=== PATIENT | male | born 1980 | race American Indian/Alaskan Native ===

== ENCOUNTER 2016-05-23 20:38 | Emergency (ER) | payer SELFPAY ==
[2016-05-23 21:43] VITALS: BP 143/96
[2016-05-24] MEDS ORDERED: MOTRIN PO ONE (01:32)
[2016-05-24] MEDS ORDERED: SUDAFED PO ONE (01:32)
[2016-05-24] MEDS ORDERED: CLEOCIN PO ONE (01:33)
--- NOTE | 2016-05-24 02:02 | Emergency Department Report ---
ED ENT HPI - General Chief complaint: Earache Stated complaint: BILATERAL EAR PAIN Time Seen by Provider: 05/24/16 01:16 Source: patient Mode of arrival: Ambulatory Limitations: No Limitations - History of Present Illness Initial comments: 36-year-old male comes in for complaint of bilateral ears feeling clogged as if he is under water. Patient also complains of left upper and left lower tooth pain. He reports that the pain worse in his left ear in the right ear feels more being clogged. Patient reports he tried using peroxide to clean his ears. MD complaint: tooth pain, ear pain - Related Data Previous Rx's Medication Instructions Recorded Last Taken Type Clindamycin [Clindamycin CAP] 300 mg PO Q8H #30 cap 05/24/16 Unknown Rx Fluticasone [Flonase] 1 spray NS QDAY #1 bottle 05/24/16 Unknown Rx Ibuprofen [Motrin 600 MG tab] 600 mg PO Q8H PRN #30 tablet 05/24/16 Unknown Rx Loratadine/Pseudoephedrine 1 tab PO Q12H #60 tablet 05/24/16 Unknown Rx [Claritin-D 12HR] Allergies Allergy/AdvReac Type Severity Reaction Status Date / Time No Known Allergies Allergy Verified 05/24/16 01:42 ED Dental HPI - General Chief complaint: Earache Stated complaint: BILATERAL EAR PAIN Time Seen by Provider: 05/24/16 01:16 Source: patient Mode of arrival: Ambulatory Limitations: No Limitations - Related Data Previous Rx's Medication Instructions Recorded Last Taken Type Clindamycin [Clindamycin CAP] 300 mg PO Q8H #30 cap 05/24/16 Unknown Rx Fluticasone [Flonase] 1 spray NS QDAY #1 bottle 05/24/16 Unknown Rx Ibuprofen [Motrin 600 MG tab] 600 mg PO Q8H PRN #30 tablet 05/24/16 Unknown Rx Loratadine/Pseudoephedrine 1 tab PO Q12H #60 tablet 05/24/16 Unknown Rx [Claritin-D 12HR] Allergies Allergy/AdvReac Type Severity Reaction Status Date / Time No Known Allergies Allergy Verified 05/24/16 01:42 ED Review of Systems ROS: Stated complaint: BILATERAL EAR PAIN Other details as noted in HPI ED Past Medical Hx - Past Medical History Previous Medical History?: No - Surgical History Past Surgical History?: No - Social History Smoking Status: Light Tobacco Smoker Substance Use Type: None - Medications Home Medications: Home Medications Medication Instructions Recorded Confirmed Last Taken Type Clindamycin [Clindamycin CAP] 300 mg PO Q8H #30 cap 05/24/16 Unknown Rx Fluticasone [Flonase] 1 spray NS QDAY #1 bottle 05/24/16 Unknown Rx Ibuprofen [Motrin 600 MG tab] 600 mg PO Q8H PRN #30 tablet 05/24/16 Unknown Rx Loratadine/Pseudoephedrine 1 tab PO Q12H #60 tablet 05/24/16 Unknown Rx [Claritin-D 12HR] ED Physical Exam - General Limitations: No Limitations General appearance: alert, in no apparent distress - Eye Eye exam: Present: normal appearance, PERRL - ENT ENT exam: Present: mucous membranes moist - Expanded ENT Exam Expanded TM/Canal exam: Bulging: Left TM, Cerumen Impaction: Right TM Teeth exam: Present: dental caries, gingival enlargement Throat exam: Negative: tonsillar erythema, tonsillar exudate - Neck Neck exam: Present: full ROM. Absent: tenderness, lymphadenopathy - Respiratory Respiratory exam: Present: normal lung sounds bilaterally - Cardiovascular Cardiovascular Exam: Present: regular rate ED Course Vital Signs 05/23/16 21:41 Temperature 98.0 F Pulse Rate 76 Respiratory 18 Rate Blood Pressure 143/96 O2 Sat by Pulse 98 Oximetry ED Medical Decision Making - Medical Decision Making Patient's been evaluated by this provider fast track. We'll give him ibuprofen 800 mg, Sudafed 30 mg, clindamycin 600 mg. We would discharge patient on clindamycin 300 mg 3 times a day as well as Claritin D every 12 hours. And Flonase as well as ibuprofen 600 mg 3 times a day when necessary for pain. Will refer patient to a dentist as well as her primary care provider. For further evaluation. Critical care attestation.: If time is entered above; I have spent that time in minutes in the direct care of this critically ill patient, excluding procedure time. ED Disposition Clinical Impression: Tooth caries Ear pressure Qualifiers: Laterality: right Qualified Code(s): H93.8X1 - Other specified disorders of right ear Disposition: DISCHARGED TO HOME OR SELFCARE Is pt being admited?: No Does the pt Need Aspirin: No Condition: Stable Instructions: Dental Caries (ED), Earache (ED) Additional Instructions: Take Medication as prescribed. Follow up with her primary care provider. As well as a dentist we will give you a handout for at the dentist are available. Prescriptions: Loratadine/Pseudoephedrine [Claritin-D 12HR] 1 tab PO Q12H #60 tablet Clindamycin [Clindamycin CAP] 300 mg PO Q8H #30 cap Fluticasone [Flonase] 1 spray NS QDAY #1 bottle Ibuprofen [Motrin 600 MG tab] 600 mg PO Q8H PRN #30 tablet PRN Reason: Pain Referrals: PRIMARY CARE, [Primary Care Provider] - 3-5 Days [facility] [Outside] - 3-5 Days [facility] [Outside] - 3-5 Days Forms: Work/School Release Form(ED)
== END 2016-05-24 02:33 | disposition home or self-care (01) ==
LOC: ED 20:38
DX: K02.9 Dental caries, unspecified (principal); H93.8X1 Other specified disorders of right ear; Z72.0 Tobacco use
CPT/HCPCS: 99282